=== PATIENT | female | born 1955 | race Caucasian/White ===

== ENCOUNTER 2021-10-25 07:37 | Outpatient (CLI) | payer MEDICARE, BC, SELFPAY ==
[2021-10-25 09:35] LABS: Albumin* 4.3 g/dL (3.3-5.0); Chloride* 104 mmol/L (96-114)
[2021-10-25 09:36] LABS: Potassium* 4.6 mmol/L (3.6-5.1); Sodium* 140 mmol/L (135-149)
[2021-10-25 09:38] LABS: Alanine Aminotransferase* 14 U/L (4-35); Alkaline Phosphatase* 64 U/L (40-150); Aspartate Amino Transferase* 25 U/L (12-35); Bilirubin Total* 0.6 mg/dL (0.1-1.5); Blood Urea Nitrogen* 15 mg/dL (7-30); Carbon Dioxide* 29 mmol/L (20-32); Cholesterol* 214 mg/dL (90-199); Estimated Glomerular Filt Rate 62 ml/min; Glucose* 100 mg/dL (60-115); Total Protein* 7.4 g/dL (6.0-8.3)
[2021-10-25 09:39] LABS: Calcium* 9.4 mg/dL (8.4-10.6); HDL Cholesterol* 68 mg/dL (>=50); LDL Cholesterol Calculated 120 mg/dL (<100); Triglycerides* 131 mg/dL (40-149)
== END 2021-10-25 07:38 | disposition home or self-care (01) ==
PROVIDERS: PCP Family Medicine; Visit Provider Family Medicine
DX: Z01.419 Encounter for gynecological examination (general) (routine) without abnormal findings (principal); E78.5 Hyperlipidemia, unspecified; Z51.81 Encounter for therapeutic drug level monitoring; M85.80 Other specified disorders of bone density and structure, unspecified site; G89.4 Chronic pain syndrome
CPT/HCPCS: 80053; 80061

== ENCOUNTER 2022-03-07 08:46 | Outpatient (CLI) | payer MEDICARE, BC, SELFPAY ==
--- NOTE | 2022-03-07 09:15 | CRLHL7_ITS ---
For Patients: As a result of the Century Cures Act, medical imaging exams and procedure reports are released immediately into your electronic medical record. You may view this report before your referring provider. If you have questions, please contact your health care provider. BILATERAL SCREENING MAMMOGRAM WITH COMPUTER-AIDED DETECTION AND TOMOSYNTHESIS TECHNIQUE: CC and MLO views were obtained. These mammographic images have been obtained using full-field digital technique. These mammographic images were interpreted with the benefit of computer-aided detection. Breast Tomosynthesis was used in this interpretation. COMPARISON FILM: 03/04/21, 11/27/19, 06/01/18. FINDINGS: There are scattered areas of fibroglandular density IMPRESSION: There is no radiographic evidence for malignancy. ASSESSMENT: BI-RADS Category 1: Negative RECOMMENDATION: Routine screening mammogram in 1 year. A lay language report of this examination will be provided to the patient. Dl Salmeron M.D. Diagnostic Radiologist [email or web address] JOSUE/[email or web address] monsalve/Dictated by: Dl Salmeron MD @ 03/07/2022 12:18:00 PM (Electronically Signed)
== END 2022-03-07 08:47 | disposition home or self-care (01) ==
PROVIDERS: PCP Family Medicine; Visit Provider Family Medicine
DX: Z12.31 Encounter for screening mammogram for malignant neoplasm of breast (principal)
CPT/HCPCS: 77063; 77067

== ENCOUNTER 2022-10-25 07:30 | Outpatient (CLI) | payer MEDICARE, BC, SELFPAY | END 2022-10-25 07:31 | disposition home or self-care (01) | LOC: NFLDREF 10-27 12:19 | PROVIDERS: PCP Family Medicine; Referring Provider Family Medicine; Visit Provider Family Medicine | DX: Z00.00 Encounter for general adult medical examination without abnormal findings (principal); E78.5 Hyperlipidemia, unspecified; G89.4 Chronic pain syndrome | CPT/HCPCS: 80053; 80061 ==

== ENCOUNTER 2023-04-04 14:18 | Outpatient (CLI) | payer MEDICARE, BC, SELFPAY ==
--- OUTSIDE RECORDS SUMMARY | 2023-04-04 14:25 | XMS_ITS | Clinical Summary ---
Author Name Unknown Organization [facility] Address [place], [place] [address] Care Team Providers Care Pit And Auxiliaries Supervisor Name Role Phone George Awad Primary Care Provider [phone] Allergies Active Allergy Reactions Criticality Noted Date Comments Citalopram *Unknown 11/15/2012 Sertraline *Unknown 11/15/2012 Medications Medication Sig Dispensed Refills Start Date End Date Status DULoxetine (CYMBALTA) 40 mg cpDR Take 40 mg by mouth 2 times daily. 0 Active gabapentin (NEURONTIN) 300 mg capsule Take 300 mg by mouth once daily. 12 Noon 0 Active GABAPENTIN ORAL Take 500 mg by mouth 2 times daily. AM and PM 0 Active Active Problems Problem Noted Date Diagnosed Date Sleep disturbance 11/16/2012 Neck pain on left side 11/16/2012 Anxiety state, unspecified 11/14/2011 Family History Medical History Relation Name Comments Heart Disease Father [place] age 74 Psychiatric illness Maternal Uncle suicid e Psychiatric illness Mother depressi on, ECT, first depression age 70 when stopped eating Relation Name Status Comments Father Maternal Uncle Mother Social History Tobacco Use Types Packs/Day Years Used Date Smoking Tobacco: Never Smokeless Tobacco: Never Tobacco Cessation:Counseling Given: No Alcohol Use Standard Drinks/Week Comments No 0 (1 standard drink = 0.6 oz pur e alcohol) Sex and Gender Information Value Date Recorded Sex Assigned at Not on file Gender Identity Not on file Sexual Orientation Not on file Obstetrics History Last Filed Vital Signs Vital Sign Reading Time Taken Comments Blood Pressure 101/70 07/07/2016 2:00 PM CDT Pulse 67 07/07/2016 2:00 PM CDT Temperature 36.5 ??C (97.7 ??F) 07/07/2016 1:30 PM CD T Respiratory Rate 16 07/07/2016 2:00 PM CDT Oxygen Saturation 100% 07/07/2016 1:42 PM CDT Inhaled Oxygen Concentration - - Weight 63.6 kg (140 lb 4.8 oz) 01/26/2015 12:52 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 Height 165.1 cm (5' 5) 11/15/2012 11:17 PM CDT Body Mass Index 23.35 11/15/2012 11:17 PM CDT Plan of Treatment Health Maintenance Due Date Last Done Comments COVID-19 vaccine series (#1) 1954 Tdap 1965 Depression screening for age 12+ 1966 BMI (ht and wt on same day) for age 18+ 1972 Hepatitis C screening for age 18-79 1972 Tetanus booster 1974 Lipids for age 45-75 1999 Mammogram for age 45-75 1999 Zoster (shingles) series for age 50+ (1 of 2) 03/26/19 05 DEXA/DXA scan for age 65+ 2019 Pneumococcal series for age 65+ (1 of 1 - PCV) 020 Influenza for age 65+ 10/28/2022 Colonoscopy through age 75 07/07/2026 07/07/2016 Advance Directives Latest Code Status on File Code Status Date Activated Date Inactivated Comments Full Code 07/07/2016 10:44 AM 07/07/2016 4:24 PM Code Status History Code Status Date Activated Date Inactivated Comments Full Code 11/15/2012 7:14 PM 11/21/2012 4:11 PM Care Teams Pit And Auxiliaries Supervisor Relationship Specialty Start Date End Date George Awad MBBS [address] [place] [address] DANAE Rea [id number] PCP - General Internal Medicine 06/12/17
--- NOTE | 2023-04-04 14:40 | CRLHL7_ITS ---
For Patients: As a result of the Cures Act, medical imaging exams and procedure reports are released immediately into your electronic medical record. You may view this report before your referring provider. If you have questions, please contact your health care provider. BILATERAL SCREENING MAMMOGRAM WITH COMPUTER-AIDED DETECTION AND TOMOSYNTHESIS TECHNIQUE: CC and MLO views were obtained. These mammographic images have been obtained using full-field digital technique. These mammographic images were interpreted with the benefit of computer-aided detection. Breast Tomosynthesis was used in this interpretation. COMPARISON FILM: 03/07/22, 03/04/21, 11/27/19. FINDINGS: There are scattered areas of fibroglandular density IMPRESSION: There is no radiographic evidence for malignancy. ASSESSMENT: BI-RADS Category 1: Negative RECOMMENDATION: Routine screening mammogram in 1 year. A lay language report of this examination will be provided to the patient. Dl Salmeron M.D. Diagnostic Radiologist [email or web address] JOSUE/gricel Transcribed: 5:08 p.dalia monsalve/Dictated by: Dl Salmeron MD @ 04/06/2023 12:14:00 PM (Electronically Signed)
== END 2023-04-04 14:19 | disposition home or self-care (01) ==
PROVIDERS: PCP Family Medicine; Visit Provider Family Medicine
DX: Z12.31 Encounter for screening mammogram for malignant neoplasm of breast (principal)
CPT/HCPCS: 77063; 77067

== ENCOUNTER 2023-11-16 07:41 | Outpatient (CLI) | payer MEDICARE, BC, SELFPAY ==
--- OUTSIDE RECORDS SUMMARY | 2023-11-17 08:45 | XMS_ITS | Clinical Summary ---
Author Organization [facility] Address [place], [place] [address] Care Team Providers Care Needle Grinder Name Role Phone George Awad Primary Care Provider [phone] Allergies Active Allergy Reactions Criticality Noted Date Comments Citalopram *Unknown 11/15/2012 Sertraline *Unknown 11/15/2012 Medications Medication Sig Dispensed Refills Start Date End Date Status DULoxetine (CYMBALTA) 40 mg cpDR Take 40 mg by mouth 2 times daily. Active gabapentin (NEURONTIN) 300 mg capsule Take 300 mg by mouth once daily. 12 Noon Active GABAPENTIN ORAL Take 500 mg by mouth 2 times daily. 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 Height 165.1 cm (5' 5) 11/15/2012 11:17 PM CDT Body Mass Index 23.35 11/15/2012 11:17 PM CDT Plan of Treatment Health Maintenance Due Date Last Done Comments Tdap 1965 Depression screening for age 12+ [...] 65+ (1 of 1 - PCV) 020 COVID-19 vaccine series (2022-24 season) 4 Influenza for age 65+ 10/29/2023 Colonoscopy through age 75 07/07/2026 07/07/2016 Procedures Procedure Name Priority Date/Time Associated Diagnosis Comments COLONOSCOPY 07/07/2016 12:24 PM CDT from Last 3 Months or Most Recently Relevant to Health Maintenance Results * COLONOSCOPY (07/07/2016 12:24 PM CDT) 07/07/2016 12:2 4 PM CDT Narrative Transcriptions KitJose hurtado 07/07/2016 1:09 PM CDT Patient Name: Lucia Nur Procedure Date: 07/07/2016 Gender: Female Date of : 1955 Admit Type: Ambulatory Procedure: Colonoscopy [facility]ural[facility] Indications/Pre-Op Diagnosis: Screening for colorectal malignant neoplasm, Last colonoscopy: February 2005 Medications: The level of sedation administered was moderate, Midazolam 6 mg IV, Fentanyl 125 micrograms IV Procedure Description: The patient had risks, benefits and alternatives explained to andgave informed consent. The patient had a stable cardiopulmonary status and judged an adequate candidate for conscious sedation. The colonoscope was passed through the anus and advanced to thececum, identified by appendiceal orifice and ileocecal valve. Thecolonoscopy was somewhat difficult due to significant looping. Successfulcompletion of the procedure was aided by applying abdominal pressure. Thepatient tolerated the procedure well. The quality of the bowel preparationwas good. Complications: No immediate complications. Estimated blood loss: Minimal. Estimated Blood Loss & Specimen: Estimated blood loss was minimal. Specimen collected - Yes and sent to Laboratory Findings: The perianal and digital rectal examinations were normal. A 4 mm polyp was found in the hepatic flexure. The polyp was sessile. The polyp was removed with a cold biopsy forceps. Resection and retrieval were complete. A 7 mm polyp was found in the sigmoid colon. The polyp was sessile.The polyp was removed with a hot snare. Resection and retrieval were complete. The exam was otherwise without abnormality on direct and retroflexion views. Impressions/Post-Op Diagnosis: - One 4 mm polyp at the hepatic flexure, removed with a cold biopsy forceps. Resected and retrieved. - One 7 mm polyp in the sigmoid colon, removed with a hot snare. Resected and retrieved. - The examination was otherwise normal on direct and retroflexionviews. Recommendation: - Await pathology results. Moderate Sedation: Moderate (conscious) sedation was administered by the endoscopy nurse and supervised by the endoscopist. The following parameters were monitored: oxygen saturation, heart rate, blood pressure, andresponse to care. Jose Pantoja, 07/07/2016 1:09:23 PM This report has been signed electronically. Note Initiated On: 07/07/2016 12:24 PM Jose Pantoja MD PROCEDURE ORD from Last 3 Months or Most Recently Relevant to Health Maintenance Advance Directives * Full Code (Latest Code Status on File) Date Activated Date Inactivated Comments 07/07/2016 10:44 AM 07/07/2016 4:24 PM * Full Code Date Activated Date Inactivated Comments 11/15/2012 7:14 PM 11/21/2012 4:11 PM Care Teams Needle Grinder Relationship Specialty Start Date End Date George Awad MBBS [address] [place] [address] DANAE Rea [address] PCP - General Internal Medicine 06/12/17
== END 2023-11-16 07:42 | disposition home or self-care (01) ==
LOC: NFLDREF 11-17 08:40
PROVIDERS: PCP Family Medicine; Referring Provider Family Medicine; Visit Provider Family Medicine
DX: E78.5 Hyperlipidemia, unspecified (principal)
CPT/HCPCS: 80053; 80061

== ENCOUNTER 2024-04-23 13:36 | Outpatient (CLI) | payer MEDICARE, BC, SELFPAY ==
--- NOTE | 2024-04-23 14:00 | CRLHL7_ITS ---
For Patients: As a result of the Century Cures Act, medical imaging exams and procedure reports are released immediately into your electronic medical record. You may view this report before your referring provider. If you have questions, please contact your health care provider. BILATERAL SCREENING MAMMOGRAM WITH COMPUTER-AIDED DETECTION AND TOMOSYNTHESIS TECHNIQUE: CC and MLO views were obtained. These mammographic images have been obtained using full-field digital technique. These mammographic images were interpreted with the benefit of computer-aided detection. Breast Tomosynthesis was used in this interpretation. COMPARISON FILM: 04/04/23, 03/07/22, 03/04/21. FINDINGS: There are scattered areas of fibroglandular density. IMPRESSION: There is no radiographic evidence for malignancy. ASSESSMENT: BI-RADS Category 1: Negative RECOMMENDATION: Routine screening mammogram in 1 year. A lay language report of this examination will be provided to the patient. Dl Salmeron M.D. Diagnostic Radiologist [email or web address] SP/Dictated by: Dl Salmeron MD @ 04/24/2024 12:48:00 PM (Electronically Signed)
== END 2024-04-23 13:37 | disposition home or self-care (01) ==
LOC: MAMMO 13:38
PROVIDERS: PCP Family Medicine; Visit Provider Family Medicine
DX: Z12.31 Encounter for screening mammogram for malignant neoplasm of breast (principal)
CPT/HCPCS: 77063; 77067

== ENCOUNTER 2024-11-20 07:44 | Outpatient (CLI) | payer MEDICARE, BC, SELFPAY | END 2024-11-20 07:45 | disposition home or self-care (01) | LOC: NFLDREF 11-22 14:32 | PROVIDERS: PCP Family Medicine; Referring Provider Family Medicine; Visit Provider Family Medicine | DX: E78.5 Hyperlipidemia, unspecified (principal); Z13.9 Encounter for screening, unspecified | CPT/HCPCS: 80053; 80061 ==

== ENCOUNTER 2024-12-05 06:31 | Outpatient (CLI) | payer MEDICARE, BC, SELFPAY ==
--- NOTE | 2024-12-05 07:48 | P.ANES_ITS ---
Anesthesia Charges Start Date/Time Anesthesia Start Date: 12/05/24 Anesthesia Start Time: 07:10 Stop Date/Time Anesthesia Stop Date: 12/05/24 Anesthesia Stop Time: 07:47 Summary Extremes of Age - Over 70 or under 1: CORK INSULATION SETTER Coding CPT Codes CPT Codes: DUKE LWR INTST NDSC NOS - 77363 ([id number]) P2 - PATIENT W/MILD SYST DISEASE, QK - STENCILER 2-4 CNCRNT ANELuz PROC, QX - CORK INSULATION SETTER SVC W/ MD MED DIRECTION Additional Codes: Summary - Extremes of Age - Over 70 or under 1: CORK INSULATION SETTER ([id number])
--- NOTE | 2024-12-05 07:48 | W.ANESCHARGE ---
Anesthesia Charges Start Date/Time Anesthesia Start Date: 12/05/24 Anesthesia Start Time: 07:10 Stop Date/Time Anesthesia Stop Date: 12/05/24 Anesthesia Stop Time: 07:47 Summary Extremes of Age - Over 70 or under 1: BUSINESS MACHINE MECHANIC Coding CPT Codes CPT Codes: DUKE LWR INTST NDSC NOS - 94637 ([id number]) P2 - PATIENT W/MILD SYST DISEASE, QK - SENIOR MEDICAL DIRECTOR 2-4 CNCRNT ANELuz PROC, QX - BUSINESS MACHINE MECHANIC SVC W/ MD MED DIRECTION Additional Codes: Summary - Extremes of Age - Over 70 or under 1: BUSINESS MACHINE MECHANIC ([id number])
--- NOTE | 2024-12-05 09:54 | P.ANES_ITS ---
Anesthesia Charges Start Date/Time Anesthesia Start Date: 12/05/24 Anesthesia Start Time: 07:10 Stop Date/Time Anesthesia Stop Date: 12/05/24 Anesthesia Stop Time: 07:47 Summary Extremes of Age - Over 70 or under 1: MDA Coding CPT Codes CPT Codes: ANES LWR INTST NDSC NOS - 57880 ([id number]) P2 - PATIENT W/MILD SYST DISEASE, QK - FARMWORKER EGG PRODUCING FARM 2-4 CNCRNT ANES PROC, QX - FOLDER SEAMER SVC W/ MD MED DIRECTION Additional Codes: Summary - Extremes of Age - Over 70 or under 1: MDA ([id number])
--- NOTE | 2024-12-05 09:54 | W.ANESCHARGE ---
Anesthesia Charges Start Date/Time Anesthesia Start Date: 12/05/24 Anesthesia Start Time: 07:10 Stop Date/Time Anesthesia Stop Date: 12/05/24 Anesthesia Stop Time: 07:47 Summary Extremes of Age - Over 70 or under 1: MDA Coding CPT Codes CPT Codes: ANES LWR INTST NDSC NOS - 96270 ([id number]) P2 - PATIENT W/MILD SYST DISEASE, QK - OUTSIDE PLANT FIELD ENGINEER 2-4 CNCRNT ANES PROC, QX - FLY WINDER SVC W/ MD MED DIRECTION Additional Codes: Summary - Extremes of Age - Over 70 or under 1: MDA ([id number])
== END 2024-12-05 06:32 | disposition home or self-care (01) ==
PROVIDERS: PCP Family Medicine; Visit Provider Surgery
DX: Z12.11 Encounter for screening for malignant neoplasm of colon (principal); Z86.0100 Personal history of colon polyps, unspecified; D12.3 Benign neoplasm of transverse colon; D12.0 Benign neoplasm of cecum; D12.2 Benign neoplasm of ascending colon; K57.30 Diverticulosis of large intestine without perforation or abscess without bleeding; K64.4 Residual hemorrhoidal skin tags
CPT/HCPCS: 00811; 45380; 45385; 99100; J2704